=== PATIENT | male | born 1965 | race Caucasian/White ===

== ENCOUNTER 2023-03-28 08:50 | Outpatient (AMB) | payer OTHER, SELFPAY ==
--- NOTE | 2023-03-28 08:51 | MHC.PC.OV ---
Vital Signs 03/28/23 08:52 Height 6 ft 4 in Weight 212 lb 0.4 oz BMI 25.8 BP 122/86 Blood Pressure Location Lt brachial Position Sitting Pulse 79 Pulse Source Pulse Oximeter Temp Source Skin Pulse Oximetry (%) 98 Oxygen Delivery Method Room Air Intake Visit Reasons: NPV-requesting phy Intake Note: Patient is a new patient here to establish care Neon Sign Servicer Required: No Allergies No Known Allergies Allergy (Verified 03/28/23 09:11) Medication List - Last Reconciled 03/28/23 by RIGO Zhong No Known Home Meds Tobacco use date assessed: 03/28/23 Dental Screening Dental Screen Date: 03/28/23 Did you have a dental visit in the last 12 months?: No Did you have a dental problem in the last 6 months where you did not have access to dental care?: No HPI HPI Comments History of Present Illness Details 57-year-old male new patient presents today to establish care/physical exam. Past medical history significant for 5 disc herniations and C-spine. Patient states 1 week ago he was standing up in his leg fell asleep and he fell down on his left knee, left knee joint swelling and pain with erythema and warmth noted to joint. Patient also states has right knee pain and feels like when he moves his knee a certain way that his bone pops out of place. Colonoscopy: Referral entered. Eye exam: 6 months ago Previous: Dr. Ray ELLIS. Has not been seen in over 10 years. COUNT INCLUDES THE [facility] Medical History (Updated 03/28/23 @ 09:41 by RIGO Zhong) COVID Surgical History (Updated 03/28/23 @ 09:13 by RIGO Zhong) History of ankle surgery History of surgical removal of meniscus of knee Family History (Updated 03/28/23 @ 09:14 by RIGO Zhong) Mother No problems noted. Father Abdominal aneurysm Social History (Updated 03/28/23 @ 09:16 by RIGO Zhong) Housing: House Alcohol intake: current Alcohol intake frequency: a few times a week Alcohol type: beer and hard liquor Patient Tobacco Use Status: Current someday Tobacco user (1 cigar a month ) Tobacco use type: Cigar e-Cigarette/Vaping Use: Never Used service: No Current occupational status: employed Cognitive needs: No Hearing needs: No Vision needs: No Questionnaire PHQ-9 Over the last 2 weeks, how often have you been bothered by any of the following problems? 1. Little interest or pleasure in doing things: not at all 2. Feeling down, depressed, or hopeless: not at all 3. Trouble falling or staying asleep, or sleeping too much: not at all 4. Feeling tired or having little energy: not at all 5. Poor appetite or overeating: not at all 6. Feeling bad about yourself - or that you are a failure or have let yourself or your family down: not at all 7. Trouble concentrating on things, such as reading the newspaper or watching television: not at all 8. Moving or speaking so slowly that other people could have noticed. Or the opposite - being so fidgety or restless that you have been moving around a lot more than usual: not at all 9. Thoughts that you would be better off or of hurting yourself in some way: not at all Total score: 0 Depression Screening Interpretation: Negative 75841 - PHQ-9 Billing: Yes Source: Developed by Drs. John Schaffer, Pauline Obrien, Rod Smyth and colleagues, with an educational anat from [employer]. AUDIT C Alcohol Use Questionnaire (AUDIT-C) 1. How often do you have a drink containing alcohol?: 2-3 times a week 2. How many drinks containing alcohol do you have on a typical day when you are drinking?: 7 to 9 3. How often do you have six or more drinks on one occasion?: Weekly Total Score: 9 YULIYA-7 AMB Questionnaire YULIYA-7 Date YULIYA - 7 assessed: 03/28/23 Feeling nervous, anxious, or on edge: 0 = Not at all Not being able to stop or control worryin = Not at all Worrying too much about different things: 0 = Not at all Trouble relaxin = Not at all Being so restless that it is hard to sit still: 0 = Not at all Becoming easily annoyed or irritable: 0 = Not at all Feeling afraid as if something awful might happen: 0 = Not at all Total YULIYA-7 score (0-4 normal; 5-9 mild; 10-14 moderate; 15-21 severe): 0 Source: Developed by Drs. John Schaffer, Pauline Obrien, Rod Smyth and colleagues, with an educational anat from [employer]. YULIYA-7 Assessment Billing YULIYA-7 Assessment Tool: YULIYA-7 Assessment 76183 Review of Systems Const Denies chills, Denies fatigue, Denies fever(s) and Denies poor appetite Eyes Denies no additional complaints ENT Reports Normal hearing present Card Denies chest pain, Denies syncope, Denies rapid heart rate and Denies dyspnea Resp Denies cough and Denies dyspnea GI Denies change in stool character, Denies constipation, Denies diarrhea, Denies nausea and Denies vomiting Denies dysuria, Denies urinary frequency and Denies urinary urgency Musc Reports arthralgias (bilateral knee pain ) Neuro Reports Normal hearing present, Denies confusion and Denies syncope Psych Denies confusion Endo Denies fatigue Physical exam (Primary Care) Vital Signs: Last Vital Signs Pulse 79 03/28/23 08:52 BP 122/86 03/28/23 08:52 Pulse Ox 98 03/28/23 08:52 Oxygen Delivery Method Room Air 03/28/23 08:52 BMI result Body Mass Index 25.8 Tobacco/Smoking Status: Tobacco use Status Tobacco use date assessed 03/28/23 03/28/23 08:52 Patient Tobacco Use Status Current someday Tobacco (1 03/28/23 09:16 cigar a month ) Tobacco use type Cigar 03/28/23 09:16 e-Cigarette/Vaping Use Never Used 03/28/23 09:16 PHQ-9: PHQ-9 Score PHQ-9: Total score 0 03/28/23 09:18 Depression Screening Interpretation: Negative Const General: No confusion Orientation/consciousness: No confusion HENMT Head: Yes normocephalic and Yes atraumatic Ears: external ears normal and TM's normal bilaterally General nose exam: Normal external nose present and Normal nasal mucous membranes and turbinates present Face and sinus: Yes normal facial exam and Yes sinuses nontender Mouth: moist mucous membranes Throat: Yes tonsils normal Eyes Conjunctivae: conjunctivae normal Sclerae: sclerae normal Pupils: Equal, round and reactive pupils present and Pupils normal by confrontation EOM: EOMs intact bilaterally Direct Ophthalmoscopy: normal light reflex Neck Neck: Yes no lymphadenopathy and Yes supple Thyroid: Thyroid normal Chest Chest palpation & inspection: normal inspection of the chest Resp Effort & Inspection: normal respiratory effort Auscultation: clear to auscultation bilaterally, no crackles, no rhonchi and no wheezes Cardio Rate: regular rate Rhythm: regular rhythm Peripheral pulses: radial pulses present and dorsalis pedis present GI Inspection: Yes normal to inspection Palpation (GI): Soft to palpation, nontender and No hepatosplenomegaly present Auscultation: normoactive bowel sounds Skin General skin exam: no rashes or lesions noted Neuro General: No confusion Cranial nerves: Yes Equal, round and reactive pupils present and Yes Normal hearing present Cognition (Neuro): normal cognition Gait exam (Neuro): Normal gait present Motor exam (neuro): 5/5 motor strength present throughout Deep tendon reflexes (DTR's): Right brachioradialis reflex intensity grade: 2+, Left brachioradialis reflex intensity grade: 2+, Right patellar reflex intensity grade: 2+ and Left patellar reflex intensity grade: 2+ Extrem General: No edema Right lower extremity: normal to inspection and knee Details: no tenderness and no swelling Left lower extremity: knee Details: swelling, warmth and other (erythema right knee extending up right leg); no tenderness Assessment and Plan Assessment & Plan (1) Cellulitis of left knee: Code(s): L03.116 - Cellulitis of left lower limb Plan: Patient has left knee swelling, erythema and warmth. Denies hx of GOUT. Will cover with doxycycline for left knee cellulitis and obtain x-ray of left knee. (2) Bilateral knee pain: Code(s): M25.561 - Pain in right knee; M25.562 - Pain in left knee Plan: LT and Right knee XRAYs ordered Plan Follow up in 3 months or sooner if needed. Orders: Orders Comprehensive [place]. Panel Fast Today Z13.1 - Encounter for screening for diabetes mellitus Lipid Panel Today Z13.220 - Encounter for screening for lipoid disorders TSH reflex Free T4 Today Z13.29 - Encounter for screening for other suspected endocrine disorder Complete Blood Count no Diff Today Z13.0 - Encounter for screening for diseases of the blood and blood-forming organs and certain disorders involving the immune mechanism PSA,Total (Free>4and<10) Today Z12.5 - Encounter for screening for malignant neoplasm of prostate XR knee LT 2V Today M25.561 - Pain in right knee, M25.562 - Pain in left knee XR knee RT 2V Today L03.116 - Cellulitis of left lower limb, M25.561 - Pain in right knee, M25.562 - Pain in left knee Referrals Gastroenterology Referral Z12.11 - Encounter for screening for malignant neoplasm of colon Medications: New doxycycline hyclate 100 mg PO BID 14 caps 0RF L03.116 - Cellulitis of left lower limb Coding Level of Care Code New Pt Prev Care 40-64y([id number]) Diagnoses Cellulitis of left knee L03.116 Bilateral knee pain M25.561; M25.562 Additional Codes YULIYA-7 Assessment Billing - YULIYA-7 Assessment Tool: YULIYA-7 Assessment [id number] ([id number])
[2023-03-28 08:52] VITALS: BP 122/86; PULSE 79; O2SAT 98; BMI 25.8
== END 2023-03-28 09:59 | disposition home or self-care (01) ==
PROVIDERS: PCP Nurse Practitioner Family; Visit Provider Nurse Practitioner Family
DX: Z00.00 Encounter for general adult medical examination without abnormal findings (principal); L03.116 Cellulitis of left lower limb; M25.561 Pain in right knee; M25.562 Pain in left knee
CPT/HCPCS: 99386

== ENCOUNTER 2023-04-02 06:25 | Outpatient (REF) | payer OTHER, SELFPAY ==
--- NOTE | ~2023-04-02 | XR_ITS ---
EXAMINATION: X-RAY RIGHT KNEE, LEFT KNEE CLINICAL INFORMATION: Bilateral knee pain. COMPARISON: None available. TECHNIQUE: AP and lateral views of bilateral knees. FINDINGS: LEFT KNEE: Moderate left medial joint space narrowing. Tiny tricompartmental osteophytes. Marked left prepatellar soft tissue swelling. RIGHT KNEE: Tiny tricompartmental osteophytes. Joint effusion. Joint spaces are preserved. XR/XR knee RT 2V IMPRESSION: 1. Moderate left medial joint space narrowing. Marked left prepatellar soft tissue swelling. 2. Mild degenerative changes right knee. Right joint effusion. Additional imaging with CT scan or MRI should be considered for better visualization as these modalities are much more sensitive for detection of fracture or other underlying pathology.
--- NOTE | ~2023-04-02 | XR_ITS ---
EXAMINATION: X-RAY RIGHT KNEE, LEFT KNEE CLINICAL INFORMATION: Bilateral knee pain. COMPARISON: None available. TECHNIQUE: AP and lateral views of bilateral knees. FINDINGS: LEFT KNEE: Moderate left medial joint space narrowing. Tiny tricompartmental osteophytes. Marked left prepatellar soft tissue swelling. RIGHT KNEE: Tiny tricompartmental osteophytes. Joint effusion. Joint spaces are preserved. XR/XR knee LT 2V IMPRESSION: 1. Moderate left medial joint space narrowing. Marked left prepatellar soft tissue swelling. 2. Mild degenerative changes right knee. Right joint effusion. Additional imaging with CT scan or MRI should be considered for better visualization as these modalities are much more sensitive for detection of fracture or other underlying pathology.
[2023-04-02 07:18] LABS: Hematocrit 42.6 % (42.0-52.0); Hemoglobin 13.6 g/dl (14.0-18.0); Mean Corpuscular HGB Conc 31.9 g/dl (31.0-36.0); Mean Corpuscular Hemoglobin 29.3 pg (27.0-33.0); Mean Corpuscular Volume 91.8 fL (80.0-98.0); Mean Platelet Volume 9.4 fL (9.4-12.4); Platelet Count 203 X10*3/uL (160-400); Red Blood Count 4.64 X10*6/uL (4.60-5.80); Red Cell Distribution Width 13.2 % (11.0-16.0); White Blood Count 4.6 X10*3/uL (4.8-10.8)
[2023-04-02 07:55] LABS: Alanine Aminotransferase 19 U/L (0-40); Alkaline Phosphatase 50 U/L (39-117); Anion Gap 12 (12-20); Aspartate Amino Transferase 18 U/L (5-37); Bilirubin Total 0.6 mg/dL (0.0-1.0); Blood Urea Nitrogen 15 mg/dL (9-16); Calcium 9.1 mg/dL (8.4-10.2); Carbon Dioxide 27 mmol/L (22-29); Chloride 105 mmol/L (96-108); Cholesterol 210 mg/dL; Estimated Glomerular Filt Rate > 60; Glucose Fasting 93 mg/dL (60-99); HDL Cholesterol 55 mg/dL; LDL Cholesterol Calculated 145 mg/dl; Potassium 4.1 mmol/L (3.3-5.1); Sodium 140 mmol/L (135-145); Total Protein 6.8 g/dL (6.5-8.0); Triglycerides 53 mg/dL
[2023-04-02 08:05] LABS: TSH reflex Free T4 1.34 uIU/mL (0.32-4.0)
[2023-04-02 08:06] LABS: PSA,Total (Free>4and<10) 1.71 ng/mL (0.00-4.00)
== END 2023-04-02 06:26 | disposition home or self-care (01) ==
LOC: HO.XRAY 06:25
PROVIDERS: PCP Nurse Practitioner Family; Visit Provider Nurse Practitioner Family
DX: Z12.5 Encounter for screening for malignant neoplasm of prostate (principal); Z13.0 Encounter for screening for diseases of the blood and blood-forming organs and certain disorders involving the immune mechanism; Z13.220 Encounter for screening for lipoid disorders; Z13.29 Encounter for screening for other suspected endocrine disorder; M25.561 Pain in right knee; M25.562 Pain in left knee; L03.116 Cellulitis of left lower limb; E78.5 Hyperlipidemia, unspecified
CPT/HCPCS: 36415; 73560; 80053; 80061; 84153; 84443; 85027